=== PATIENT | female | born 1990 | race Caucasian/White ===

== ENCOUNTER 2019-04-19 00:05 | Emergency (ER) | payer SELFPAY ==
[~2019-04-19] VITALS: Ht 182.9 cm; Wt 73.5 kg
[2019-04-19 00:20] VITALS: BP 154/77
[2019-04-19] MEDS ORDERED: TRAMADOL HCL 50 MG TABLET PO ONE (01:00)
[2019-04-19] MEDS ORDERED: TRAMADOL HCL 50 MG TABLET ONE (01:21)
== END 2019-04-19 01:32 | disposition home or self-care (01) ==
LOC: ER 00:10
DX: M25.512 Pain in left shoulder (principal); F17.200 Nicotine dependence, unspecified, uncomplicated; V43.52XA Car driver injured in collision with other type car in traffic accident, initial encounter; Y93.89 Activity, other specified; Y92.413 State road as the place of occurrence of the external cause; Y99.8 Other external cause status